=== PATIENT | male | born 1950 | race Caucasian/White ===

== ENCOUNTER 2016-09-25 07:04 | Day surgery (SDC) | payer MEDICARE, BC ==
[2016-09-25] MEDS ORDERED: PROPOFOL 500 MG/50 ML EMU IV ONE (07:41)
[2016-09-25 09:35] VITALS: BP 123/69; PULSE 63; RESP 20; TEMP 97.8; O2SAT 99
== END 2016-09-25 09:50 | disposition home or self-care (01) | DRG 951 ==
LOC: SURG 07:04
PROVIDERS: ATTEND Surgery
DX: Z12.11 Encounter for screening for malignant neoplasm of colon (principal); K57.30 Diverticulosis of large intestine without perforation or abscess without bleeding; Z86.010 Personal history of colon polyps
CPT/HCPCS: G0121; J2704